=== PATIENT | female | born 1960 | race Caucasian/White ===

== ENCOUNTER 2016-08-26 14:04 | Emergency (ER) ==
[2016-08-26] MEDS ORDERED: LABETALOL IV ONE ×2 (14:24→18:09)
--- NOTE | 2016-08-26 14:28 | PROVIDER DOCUMENTATION ---
HPI-Neurological Disorder - General Source: patient - History of Present Illness-Neuro Severity: reports: moderate Onset/Duration: reports: gradual, 1-3 hours ago Timing: reports: improving Context: denies: impaired speech, paresthesia, facial droop, falling, seizure activity Character of Altered Mental Status: reports: N/A Character of Deficits: reports: new weakness. denies: impaired speech, impaired swallowing, decreased ability to stand, decreased ability to walk, falling New weakness or altered sensation location:: reports: general (diffuse) Cognitive Baseline: alert, oriented x3 Gait Baseline: walks without assistance Associated Symptoms: reports: weakness. denies: short of breath, fever/chills, nausea, numbness in legs/feet, vomiting Similar Symptoms Previously?: No Recently seen or treated by another doctor?: No <Kael Patel - Last Filed: 08/26/16 14:24> <Julienne Dickson - Last Filed: 08/26/16 19:03> <Thiago Vidal - Last Filed: 08/27/16 00:51> - General Chief Complaint: Stroke-Like Symptoms Stated Complaint: POSS STROKE LIKE SX Time Seen by Provider: 08/26/16 14:12 Allergies/Adverse Reactions: Patient Allergies Allergy/AdvReac Type Severity Reaction Status Date / Time No Known Allergies Allergy Verified 08/26/16 14:11 Home Medications: Alprazolam 1 mg PO TID 08/26/16 Dextroamphetamine/Amphetamine [Adderall 30 mg Tablet] 30 mg PO BID 08/26/16 LISINOpril [Prinivil] 10 mg PO DAILY 08/26/16 - History of Present Illness-Neuro Nature of Presenting Problem: patient is a 56 y/o F that presents with generalized weakness x 3 hours. Pt believes she is having a CVA or MS flare up. Denies any focal deficits to one side, slurred speech, or facial droop. She is followed by for her MS. Denies recent trauma. (Kael Patel) Review of Systems - Adult - REVIEW OF SYSTEMS - ADULT Constitutional: denies: chills, fever Eyes: reports: no symptoms reported Ears, Nose, Mouth & Throat: reports: no symptoms reported Cardiovascular: denies: chest pain, palpitations Respiratory: denies: cough, shortness of breath, wheezing Gastrointestinal: denies: abdominal pain, diarrhea, nausea, vomiting Genitourinary: reports: no symptoms reported Musculoskeletal: reports: muscle weakness. denies: muscle aches Integumentary: reports: no symptoms reported Neurological: denies: ataxia, loss of balance, numbness, paresthesia, seizure, slurred speech, tremors Psychiatric: reports: no symptoms reported Endocrine: reports: no symptoms reported Hematologic/Lymphatic: reports: no symptoms reported Allergic/Immunologic: reports: no symptoms reported All Other Systems: Reviewed and Negative <Kael Patel - Last Filed: 08/26/16 14:24> Past History - Adult - PAST MEDICAL HISTORY-ADULT Review of Records: reports: Old Records Reviewed, Nursing Assessment Review, Medications Reviewed Cardiovascular: reports: HTN Respiratory: reports: COPD Neurological: reports: Multiple Sclerosis Psychiatric: reports: anxiety - PRIOR SURGERIES/PROCEDURES Surgical/Procedure History: reports: hysterectomy - IMMUNIZATION STATUS Childhood Immunizations: See Nurse Assessment Flu Vaccine: See Nurse Assessment - SOCIAL HISTORY Smoking: cigarettes, less than 1 pack/day Living Situation: family <Kael Patel - Last Filed: 08/26/16 14:24> Physical Exam- Neurological - Physical Exam-Neuro Initial Vital Signs Reviewed: Yes General Appearance: alert, no apparent distress Eye Exam: bilateral eye: normal inspection, PERRL HENMT: normocephalic/atraumatic, moist mucous membranes, normal ENT inspection Head Injury: no evidence of injury. 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 negative: facial asymmetry, facial droop, facial paresthesias, facial weakness Motor/Sensory: no motor deficit, no sensory deficit, other (leans toward the right) Neurologic: negative: aphasia, facial droop, focal weakness, motor weakness, sensory deficit Integumentary: normal color, warm/dry Psych/Mental Status: normal mood/affect, normal thought content, normal thought process, oriented x 3 - Glascow Coma Scale Best Eye Response: (4) open spontaneously Best Verbal Response: (5) oriented Best Motor Response: (6) obeys commands Total Glascow Score: 15 <Kael Patel - Last Filed: 08/26/16 14:24> Progress <Kael Patel - Last Filed: 08/26/16 14:24> - REASSESSMENT Reassessment #1 Time Reassessed: 14:40 (family to bedside now. States that she has been hallucinating with people out in her yard, in her bushes in camo speaking mean things to her and threatening her. This ahas happened before, and family would liek stroke r/o, but then Geripsych eval if she is not currently having a stroke. ) Status: unchanged - PSYCHIATRIC Medically clear for psych eval and/or transfer to [facility].: Yes - CHANGE OF SHIFT REPORT (ED Provider) Report Given and Care Transferred to:: CARLOS Vidal Time of Transfer: 19:03 Items Pending: Other ([facility] placement) <Julienne Dickson - Last Filed: 08/26/16 19:03> - CHANGE OF SHIFT REPORT (ED Provider) Report Given and Care Transferred to:: Received care of patient from juliennegoldy hahn Time of Transfer: 19:00 Items Pending: Other (placement with [facility] <Thiago Vidal - Last Filed: 08/27/16 00:51> - PLAN OF CARE/RESULTS Progress/Plan/Lab Results: Vital Signs Temp Pulse Resp BP Pulse Ox 08/26/16 14:08 98.1 F 82 18 194/71 100 No Known Allergies Allergy (Verified 08/26/16 14:11) Alprazolam 1 mg PO TID 08/26/16 Dextroamphetamine/Amphetamine [Adderall 30 mg Tablet] 30 mg PO BID 08/26/16 LISINOpril [Prinivil] 10 mg PO DAILY 08/26/16 Laboratory 08/26/16 08/26/16 08/26/16 16:05 16:05 14:26 WBC RBC Hgb Hct MCV MCH MCHC RDW Std Deviation Plt Count MPV Immature Gran % (Auto) Neut % (Auto) Lymph % (Auto) Scott % (Auto) Eos % (Auto) Baso % (Auto) Immature Gran # (Auto) Neut # (Auto) Lymph # (Auto) Scott # (Auto) Eos # (Auto) Baso # (Auto) PT INR APTT (Factor Assay) Sodium Potassium Chloride Carbon Dioxide Anion Gap BUN Creatinine Estimated GFR/1.73 m2 BUN/Creatinine Ratio Glucose Calculated Osmolality Calcium Total Bilirubin AST ALT Alkaline Phosphatase Creatine Kinase Troponin T Total Protein Albumin Globulin Albumin/Globulin Ratio TSH 0.85 Free T4 1.16 Urine Source CLEAN CATCH Urine Color YELLOW Urine Clarity CLEAR Urine pH 6.5 Ur Specific [place] 1.020 Urine Protein TRACE A Urine Ketones TRACE Urine Blood 1+ A Urine Nitrite NEGATIVE Urine Bilirubin NEGATIVE Urine Urobilinogen 1+(1 mg/dL) Urine Microscopic RBC 10-20 A Urine WBC TRACE A Urine Microscopic WBC <10 Ur Epithelial Cells <10 Urine Crystals NONE SEEN Urine Bacteria 1+ Urine Casts NONE SEEN Urine Yeast NONE SEEN Urine Glucose NEGATIVE Urine Opiates Screen NONE DETECTED Ur Oxycodone Screen NONE DETECTED Urine Methadone Screen NONE DETECTED Ur Barbituates Screen NONE DETECTED Ur Tricyclics Screen NONE DETECTED Ur Phencyclidine Scrn NONE DETECTED Ur Amphetamines Screen PRESUMPTIVE POSITIVE A U Methamphetamines Scrn NONE DETECTED Urine MDMA Screen NONE DETECTED U Benzodiazepines Scrn PRESUMPTIVE POSITIVE A Urine Cocaine Screen NONE DETECTED U Cannabinoids Screen NONE DETECTED 08/26/16 08/26/16 08/26/16 14:26 14:26 14:26 WBC 5.73 RBC 4.33 Hgb 13.2 Hct 38.9 MCV 89.8 MCH 30.5 MCHC 33.9 RDW Std Deviation 12.1 Plt Count 284 MPV 9.4 Immature Gran % (Auto) 0.2 Neut % (Auto) 55.0 Lymph % (Auto) 34.4 Scott % (Auto) 9.4 H Eos % (Auto) 0.5 Baso % (Auto) 0.5 Immature Gran # (Auto) 0.01 Neut # (Auto) 3.15 Lymph # (Auto) 1.97 Scott # (Auto) 0.54 Eos # (Auto) 0.03 Baso # (Auto) 0.03 PT 13.1 INR 0.96 APTT (Factor Assay) 28.9 Sodium Potassium Chloride Carbon Dioxide Anion Gap BUN Creatinine Estimated GFR/1.73 m2 BUN/Creatinine Ratio Glucose Calculated Osmolality Calcium Total Bilirubin AST ALT Alkaline Phosphatase Creatine Kinase 39 Troponin T Total Protein Albumin Globulin Albumin/Globulin Ratio TSH Free T4 Urine Source Urine Color Urine Clarity Urine pH Ur Specific [place] Urine Protein Urine Ketones Urine Blood Urine Nitrite Urine Bilirubin Urine Urobilinogen Urine Microscopic RBC Urine WBC Urine Microscopic WBC Ur Epithelial Cells Urine Crystals Urine Bacteria Urine Casts Urine Yeast Urine Glucose Urine Opiates Screen Ur Oxycodone Screen Urine Methadone Screen Ur Barbituates Screen Ur Tricyclics Screen Ur Phencyclidine Scrn Ur Amphetamines Screen U Methamphetamines Scrn Urine MDMA Screen U Benzodiazepines Scrn Urine Cocaine Screen U Cannabinoids Screen 08/26/16 08/26/16 14:26 14:26 WBC RBC Hgb Hct MCV MCH MCHC RDW Std Deviation Plt Count MPV Immature Gran % (Auto) Neut % (Auto) Lymph % (Auto) Scott % (Auto) Eos % (Auto) Baso % (Auto) Immature Gran # (Auto) Neut # (Auto) Lymph # (Auto) Scott # (Auto) Eos # (Auto) Baso # (Auto) PT INR APTT (Factor Assay) Sodium 139 Potassium 3.4 L Chloride 102 Carbon Dioxide 27 Anion Gap 10 BUN 19 Creatinine 0.7 Estimated GFR/1.73 m2 > 60 BUN/Creatinine Ratio 27 Glucose 106 H Calculated Osmolality 280 Calcium 9.3 Total Bilirubin 0.20 AST 12 ALT 8 L Alkaline Phosphatase 65 Creatine Kinase Troponin T < 0.010 Total Protein 7.0 Albumin 4.3 Globulin 3.0 Albumin/Globulin Ratio 2.0 TSH Free T4 Urine Source Urine Color Urine Clarity Urine pH Ur Specific [place] Urine Protein Urine Ketones Urine Blood Urine Nitrite Urine Bilirubin Urine Urobilinogen Urine Microscopic RBC Urine WBC Urine Microscopic WBC Ur Epithelial Cells Urine Crystals Urine Bacteria Urine Casts Urine Yeast Urine Glucose Urine Opiates Screen Ur Oxycodone Screen Urine Methadone Screen Ur Barbituates Screen Ur Tricyclics Screen Ur Phencyclidine Scrn Ur Amphetamines Screen U Methamphetamines Scrn Urine MDMA Screen U Benzodiazepines Scrn Urine Cocaine Screen U Cannabinoids Screen Orders Category Date Time Status Cardiac Monitoring DIRECTED Care 08/26/16 14:16 Active Finger Stick Blood Sugar (ED) DIRECTED Care 08/26/16 14:16 Active Misc. NRSG Communication Order DIRECTED Care 08/26/16 14:16 Active Saline Loc NOW Care 08/26/16 14:16 Active CHEST-PORTABLE [RAD] Stat Exams 08/26/16 14:16 Completed HEAD W/O CONTRAST [CT] Stat Exams 08/26/16 14:16 Completed CBC WITH ELECTRONIC DIFF [HEME] Stat Lab 08/26/16 14:26 Completed CK PROFILE [SP CHEM] Stat Lab 08/26/16 14:26 Completed COMPREHENSIVE METABOLIC PANEL [CHEM] Stat Lab 08/26/16 14:26 Completed FREE T4 Stat Lab 08/26/16 14:26 Completed [address]IME WITH INR PL [COAG] Stat Lab 08/26/16 14:[address] [COAG] Stat Lab 08/26/16 14:26 Completed TROPONIN T Stat Lab 08/26/16 14:26 Completed TSH Stat Lab 08/26/16 14:[address] W/POSS RFLX CULT [URINALYSIS] Stat Lab 08/26/16 16:05 Completed URINE CULTURE [RM] Routine Lab 08/26/16 17:10 [address]UG SCREEN [address] Stat Lab 08/26/16 16:05 Completed Hydrocodone/APAP 5 mg/325 mg [[place]-5] Med 08/26/16 17:42 Discontinued 1 each PO NOW ONE LISINOpril [Prinivil] Med 08/26/16 17:42 Discontinued 10 mg PO NOW ONE Labetalol Med 08/26/16 14:24 Discontinued 10 mg IV NOW ONE Labetalol Med 08/26/16 18:09 Discontinued 10 mg IV NOW ONE EKG [EKG] Stat Ther 08/26/16 14:16 Draft (Julienne Dickson) - PSYCHIATRIC Psych patient progress: DW trying to find placement. (Julienne Dickson) Departure <Kael Patel - Last Filed: 08/26/16 14:24> - Departure Time of Disposition Order: 18:46 Certified Medical Emergency: Emergent <Julienne Dickson - Last Filed: 08/26/16 19:03> <Thiago Vidal - Last Filed: 08/27/16 00:51> - Departure DIAGNOSIS: Psychosis Qualifiers: Psychosis type: unspecified psychosis type Qualified Code(s): F29 - Unspecified psychosis not due to a substance or known physiological condition Disposition: [facility]CHIATRIC HOSPITAL/[facility] Condition: Stable Referrals: Ed Newman MD [Primary Care Provider] - Attestation - Scribe Verification/Attestation Scribe:: Kael Patel Acting as Scribe for:: Julienne Dickson Scribe documention review:: This chart was documented by a scribe and accurately reflects the service the provider performed and the decisions made by the provider. - Physician/ Mid-level Attestation Patient care was provided by Mid-level provider (PARTITION SETTER/PA):: Yes Mid-level provider:: Julienne Dickson Mid-level documentation review:: The Mid-level provider documentation, treatment plan and medical decision making was reviewed by the physician who agrees with all treatment and medical decision making by the MLP. <Kael Patel - Last Filed: 08/26/16 14:24> - Physician/ Mid-level Attestation Patient care was provided by Mid-level provider (PARTITION SETTER/PA):: Yes Mid-level provider:: Julienne Dickson Mid-level documentation review:: The Mid-level provider documentation, treatment plan and medical decision making was reviewed by the physician who agrees with all treatment and medical decision making by the MLP. <Julienne Dickson - Last Filed: 08/26/16 19:03> Physician Attestation
[2016-08-26 14:37] LABS: MANUAL DIFF NEEDED? NO
[2016-08-26 14:40] LABS: BASO% 0.5 % (0.0-0.8); EOS# 0.03 X1000 (0.0-0.7); EOS% 0.5 % (0.0-10.0); HEMATOCRIT 38.9 % (37.0-47.0); HEMOGLOBIN 13.2 g/dL (12.0-16.0); IMM GRAN# 0.01 X1000 (0.0-0.04); IMM GRAN% 0.2 % (0.0-0.5); LYMPH# 1.97 X1000 (1.2-3.4); LYMPH% 34.4 % (20.5-51.1); MCH 30.5 PG (27-31); MCHC 33.9 g/dL (33-37); MCV 89.8 FL (81-99); MONO# 0.54 X1000 (0.11-0.59); MONO% 9.4 % (1.7-9.3); MPV 9.4 FL (7.4-10.4); PLT 284 X1000 (130-400); RBC 4.33 XMIL (4.2-5.4)
[2016-08-26 14:55] LABS: INR 0.96 (0.86-1.15); PROTIME 13.1 Seconds (12.1-15.5); PTT PL 28.9 Seconds (22.6-43.9)
[2016-08-26 15:00] LABS: AGAP 10; ALBUMIN 4.3 g/dL (3.5-5.0); ALKALINE PHOSPHATASE 65 U/L (32-104); BUN 19 mg/dL (8-22); CALCIUM 9.3 mg/dL (8.8-10.2); CHLORIDE 102 mmol/L (98-107); COSMO 280; GOT 12 U/L (10-30); GPT 8 U/L (10-36); POTASSIUM 3.4 mmol/L (3.5-5.1); SODIUM 139 mmol/L (136-145); TCO2 27 mmol/L (25-35)
--- NOTE | 2016-08-26 15:08 | Diag Imaging Result Document ---
PROCEDURE NAME: CHEST-PORTABLE - 08/26/2016 SINGLE FRONTAL RADIOGRAPH OF THE CHEST: COMPARISON: 06/11/2016. FINDINGS: There is evidence of prior granulomatous disease, stable. Lungs are clear otherwise. There is no definite pleural fluid collection. Cardiac silhouette and central vasculature are grossly unremarkable. IMPRESSION: No definite acute pathology.
[2016-08-26 15:12] LABS: FREE T4 1.16 ng/dL (0.93-1.70)
--- NOTE | 2016-08-26 15:21 | Diag Imaging Result Document ---
PROCEDURE NAME: HEAD W/O CONTRAST - 08/26/2016 CT HEAD WITHOUT CONTRAST: COMPARISON: 09/21/2014. FINDINGS: There is stable mild low attenuation in the subcortical white matter of the left frontal lobe and anterior limb of the right internal capsule. There is no evidence of acute infarct given the limited sensitivity of CT versus MRI. There is no discrete intracranial mass, mass effect, or intracranial hemorrhage. Surrounding soft tissues are grossly unremarkable. Calvaria is intact. IMPRESSION: Stable very mild chronic changes, but no evidence of acute intracranial pathology by CT.
--- NOTE | 2016-08-26 16:07 | ED EKG INTERP ---
EKG Interpretation - EKG Time of EKG reading by physician:: 15:51 EKG Read and Signed by:: Danilo Acosta EKG Interpretation (*Must complete 3 of following elements*): Abnormal Rate: 83 Rhythm: normal sinus rhythm [place]: normal QRS: normal NM Interval: normal Comments: cannot rule out anterior infarct, age undetermined
--- NOTE | 2016-08-26 16:16 | EKG Report ---
Test Performed on : 08/26/2016 3:51:37 PM Test Reason : Stroke like symptoms Blood Pressure : / mmHG Vent. Rate : 083 BPM Atrial Rate : 083 BPM P-R Int : 122 ms QRS Dur : 084 ms QT Int : 382 ms P-R-T Axes : 077 055 -46 degrees QTc Int : 448 ms Normal sinus rhythm. Biatrial enlargement Cannot rule out Anterior infarct , age undetermined ST & T wave abnormality, consider inferolateral ischemia Abnormal ECG When compared with ECG of 11-JUN-2016 20:46, Non-specific change in ST segment in Inferior leads T wave inversion now evident in Inferior leads T wave inversion now evident in Lateral leads Unconfirmed Result
[2016-08-26 16:30] LABS: URINE SOURCE CLEAN CATCH
[2016-08-26 16:44] LABS: BILIRUBIN URINE NEGATIVE (NEGATIVE); BLOOD URINE 1+ (NEGATIVE); CLARITY CLEAR (CLEAR); COLOR YELLOW; GLUCOSE URINE NEGATIVE (NEGATIVE); LEUKOCYTES URINE TRACE (NEGATIVE); NITRITE URINE NEGATIVE (NEGATIVE); PH URINE 6.5; PROTEIN URINE TRACE mg/dL (NEGATIVE); UR AMPHETAMINES QUAL PRESUMPTIVE POSITIVE (NONE DETECT); UR BARBITUATES QUAL NONE DETECTED (NONE DETECT); UR BENZODIAZEPIN QUAL PRESUMPTIVE POSITIVE (NONE DETECT); UR CANNABINOIDS QUAL NONE DETECTED (NONE DETECT); UR COCAINE QUAL NONE DETECTED (NONE DETECT); UR MDMA QUAL NONE DETECTED (NONE DETECT); UR METHADONE QUAL NONE DETECTED (NONE DETECT); UR METHAMPHETAMINE QUAL NONE DETECTED (NONE DETECT); UR OPIATES QUAL NONE DETECTED (NONE DETECT); UR OXYCODONE QUAL NONE DETECTED (NONE DETECT); UR PCP QUAL NONE DETECTED (NONE DETECT); UR TCA QUAL NONE DETECTED (NONE DETECT); UROBILINOGEN URINE 1+(1 mg/dL)
[2016-08-26 17:04] LABS: URINE WBC <10 /HPF (<10)
[2016-08-26 17:09] LABS: URINE CULTURE PL NEEDED? YES; URINE EPITHELIAL CELLS <10 /HPF (<10)
[2016-08-26 17:10] LABS: URINE CAST NONE SEEN /LPF; URINE CRYSTAL NONE SEEN /HPF
[2016-08-26] MEDS ORDERED: NORCO-5 PO ONE (17:42)
[2016-08-26] MEDS ORDERED: PRINIVIL PO ONE (17:42)
[2016-08-26] MEDS ORDERED: XANAX PO ONE (23:52)
[2016-08-26] MEDS ORDERED: XANAX ONE (23:53)
[2016-08-27] MEDS ORDERED: XANAX PO ONE (15:15)
[2016-08-27] MEDS ORDERED: XANAX ONE (15:18)
[2016-08-27 16:34] VITALS: BP 109/61
== END 2016-08-27 19:42 ==
LOC: P.ED 14:04
DX: F29 Unspecified psychosis not due to a substance or known physiological condition (principal); R94.31 Abnormal electrocardiogram [ECG] [EKG]; M62.81 Muscle weakness (generalized); I10 Essential (primary) hypertension; J44.9 Chronic obstructive pulmonary disease, unspecified; G35 Multiple sclerosis; F41.9 Anxiety disorder, unspecified; F17.210 Nicotine dependence, cigarettes, uncomplicated; Z79.899 Other long term (current) drug therapy
CPT/HCPCS: 70450; 71010; 80053; 81001; 82550; 82948; 84439; 84443; 84484; 85025; 85610; 85730; 87088; 93005